=== PATIENT | male | born 1960 | race Caucasian/White ===

== ENCOUNTER 2018-07-18 15:03 | Emergency (ER) | payer OTHER ==
[~2018-07-18] VITALS: Ht 177.8 cm; Wt 90.7 kg
--- NOTE | ~2018-07-18 | EKG ---
[place], [place] ELECTROCARDIOGRAM REPORT NAME: GERSON CHEN UNIT #: [id number] ROOM: DOCTOR: EPIPHANY DRAFT REPORT BIRTHDATE: [birth year] [facility] Test Date: 2018-07-18 Test Time: 15:41:47 Pat Name: GERSON CHEN Department: Room: Gender: [employer]ist: Taylor Yusuf : 1960 Requested By: BERT STEVENS DNP Order Number: [id number] Reading MD: Willian Orr MD Measurements Intervals [place] Rate: 85 P: 38 MT: 148 QRS: 34 QRSD: 101 T: -3 QT: 355 QTc: 422 Interpretive Statements Sinus rhythm Electronically Signed On 07-18-2018 19:49:50 PDT by Willian Orr MD CM:EKGRPT:ELECTROCARDIOGRAM REPORT [id number] BERT STEVENS DNP EPIPHBANNER DRAFT REPORT BERT STEVENS DNP
[~2018-07-18 15:03] MED LIST: BACTRIM DS 8001 TA1 PO; HYDROCODONE BIT1 T11 PO; KEFLEX500 M1 PO; KETOROLAC10 MG PO; NORVASC10 MG PO; PENICILLIN VK500 MG PO; PREDNISONE20 M1 PO; Peridex 473 ML473 ML PO; VIBRAMYCIN100 MG PO; ZESTRIL20 MG PO; [UNRECOGNIZED DRUG - REMARK]
[2018-07-18 15:58] LABS: BASO % 0.3 % (0.0-1.0); EOS % 0.2 % (1.0-4.0); HEMATOCRIT 45.8 % (42.0-52.0); HEMOGLOBIN 15.7 g/dl (14.0-18.0); LYMPH # 1.9 10*3/uL (1.3-4.4); LYMPH % 17.1 % (27.0-41.0); MEAN CELL VOLUME 93.1 fl (80.0-94.0); MEAN CORPUSCULAR HGB 31.9 pg (27.0-31.0); MEAN CORPUSCULAR HGB CONC 34.3 g/dl (33.0-37.0); MEAN PLATELET VOLUME 8.9 fl (9.6-12.3); MONO # 1.3 10*3/uL (0.1-1.0); MONO % 12.2 % (3.0-9.0); NEUT # 7.6 10*3/uL (2.3-7.9); NEUT % 69.9 % (47.0-73.0); PLATELET COUNT AUTOMATED 285 10*3/uL (130-400); RED BLOOD COUNT 4.92 10*6/uL (4.50-5.90); WHITE BLOOD COUNT 10.9 10*3/uL (4.8-10.8)
[2018-07-18 16:11] LABS: ACT PARTIAL THROMBO TIME 22.2 SECONDS (20.8-31.5); INTERNATIONAL NORM RATIO 0.9 (2.0-3.5)
[2018-07-18 16:13] LABS: ALBUMIN 3.1 gm/dl (3.1-4.5); ALKALINE PHOSPHATASE 67 U/L (45-117); BUN 21 mg/dl (7-24); CHLORIDE 101 mmol/L (98-107); CREATININE 1.38 mg/dL (0.70-1.30); LIPASE 179 U/L (73-393); POTASSIUM 3.9 mmol/L (3.5-5.1); SGOT/AST 30 IU/L (3-35); SGPT/ALT 65 U/L (12-78); SODIUM 135 mmol/L (136-145); TOTAL PROTEIN 7.5 gm/dL (6.4-8.2)
[2018-07-18 16:14] LABS: TROPONIN I < 0.015 ng/ml (<0.045)
[2018-07-18 16:28] LABS: BILIRUBIN NEGATIVE (NEGATIVE); BLOOD 2+ (NEGATIVE); CLARITY SL CLOUDY (CLEAR); COLOR YELLOW (YELLOW); GLUCOSE NEGATIVE (NEGATIVE); KETONE NEGATIVE (NEGATIVE); LEUKO ESTERASE NEGATIVE (NEGATIVE); NITRITE NEGATIVE (NEGATIVE); RBC 21-30 rbc/hpf (0-2); UROBILINOGEN 0.2 E.U./dl (0.2-1.0); WBC TNTC wbc/hpf (0-5)
[2018-07-18 19:15] VITALS: BP 114/94
[2018-07-18] MEDS ORDERED: SEPTDS PO (19:15)
[2018-07-18] MEDS ORDERED: Zofran4 MG SL (19:15)
== END 2018-07-18 19:20 | disposition home or self-care (01) ==
LOC: ED 15:03
PROVIDERS: Nurse Practitioner Family
DX: N39.0 Urinary tract infection, site not specified (principal); R10.84 Generalized abdominal pain; N28.9 Disorder of kidney and ureter, unspecified; I10 Essential (primary) hypertension; E78.5 Hyperlipidemia, unspecified; G89.29 Other chronic pain; Z86.73 Personal history of transient ischemic attack (TIA), and cerebral infarction without residual deficits; Z79.899 Other long term (current) drug therapy

== ENCOUNTER 2019-04-18 10:54 | Emergency (ER) | payer OTHER ==
[~2019-04-18] VITALS: Ht 177.8 cm; Wt 88.5 kg
[~2019-04-18 10:54] MED LIST changes: +SEPTDS PO; +Zofran4 MG SL
[2019-04-18 10:57] VITALS: BP 120/88
[2019-04-18 11:24] LABS: BASO % 0.8 % (0.0-1.0); EOS # 0.1 10*3/uL (0.0-0.4); EOS % 1.7 % (1.0-4.0); HEMATOCRIT 42.1 % (42.0-52.0); HEMOGLOBIN 13.8 g/dl (14.0-18.0); LYMPH # 1.8 10*3/uL (1.3-4.4); LYMPH % 35.3 % (27.0-41.0); MEAN CELL VOLUME 95.9 fl (80.0-94.0); MEAN CORPUSCULAR HGB 31.4 pg (27.0-31.0); MEAN CORPUSCULAR HGB CONC 32.8 g/dl (33.0-37.0); MEAN PLATELET VOLUME 8.5 fl (9.6-12.3); MONO # 0.7 10*3/uL (0.1-1.0); MONO % 13.9 % (3.0-9.0); NEUT # 2.5 10*3/uL (2.3-7.9); NEUT % 48.1 % (47.0-73.0); PLATELET COUNT AUTOMATED 262 10*3/uL (130-400); RED BLOOD COUNT 4.39 10*6/uL (4.50-5.90); RED CELL DISTRI WIDTH 12.5 % (0-14.5); WHITE BLOOD COUNT 5.2 10*3/uL (4.8-10.8)
[2019-04-18] MEDS ORDERED: CEPHALEXIN500 M1 PO (12:36)
== END 2019-04-18 12:39 | disposition home or self-care (01) ==
LOC: ED 10:54
PROVIDERS: Physician Assistant
DX: S61.031A Puncture wound without foreign body of right thumb without damage to nail, initial encounter (principal); F17.200 Nicotine dependence, unspecified, uncomplicated; Z79.899 Other long term (current) drug therapy; W22.8XXA Striking against or struck by other objects, initial encounter; Y93.89 Activity, other specified; Y92.89 Other specified places as the place of occurrence of the external cause; Y99.8 Other external cause status